=== PATIENT | male | born 1995 | race Two or more races ===

== ENCOUNTER 2024-12-14 09:59 | Emergency (ER) | payer SELFPAY ==
[2024-12-14] MEDS: Ibuprofen 800 MG Tab PO ONE (11:24)
== END 2024-12-14 12:20 | disposition home or self-care (01) ==
LOC: MW.ED 09:59
DX: M72.2 Plantar fascial fibromatosis (principal); Z75.3 Unavailability and inaccessibility of health-care facilities; Z90.49 Acquired absence of other specified parts of digestive tract
CPT/HCPCS: 73630; 99283; A9270; 99282

== ENCOUNTER 2024-12-21 11:49 | Emergency (ER) | payer SELFPAY ==
[2024-12-21] MEDS: Ondansetron 4 MG/2 ML SDV IVPUSH ONE (13:06)
[2024-12-21] MEDS: Morphine 4 MG/ML Syringe IVPUSH ONE (13:06)
[2024-12-21] MEDS: Sodium Chloride 0.9% 2,000 ML IV ONE (13:07)
[2024-12-21 13:12] LABS: BASOPHILS PERCENT AUTO 0.4 % (0.0-1.0); EOSINOPHILS ABSOLUTE AUTO 0.01 K/uL (0.00-0.45); HEMATOCRIT 42.8 % (42.0-52.0); HEMOGLOBIN 14.7 g/dL (14.0-18.0); IMMATURE GRAN ABSOLUTE AUTO 0.21 K/uL (0.00-0.05); IMMATURE GRAN PERCENT AUTO 0.9 % (0.0-0.4); LYMPHOCYTES ABSOLUTE AUTO 2.61 K/uL (1.00-4.80); LYMPHOCYTES PERCENT AUTO 10.6 % (24.0-44.0); MEAN CORPUSCULAR HEMOGLOBIN 28.2 pg (28.0-32.0); MEAN CORPUSCULAR HGB CONC 34.3 g/dL (32.0-36.0); MEAN PLATELET VOLUME 9.7 fL (9.4-12.4); MONOCYTES ABSOLUTE AUTO 1.39 K/uL (0.00-0.80); MONOCYTES PERCENT AUTO 5.6 % (0.0-8.0); NEUTROPHILS PERCENT AUTO 82.5 % (41.0-71.0); PLATELET COUNT,PLT 466 K/uL (150-400); RED BLOOD CELL COUNT 5.22 M/uL (4.52-5.90); WHITE BLOOD CELL COUNT,WBC 24.62 K/uL (3.9-11.3)
[2024-12-21 13:47] LABS: A/G RATIO 0.7 (0.9-1.6); ALBUMIN 3.1 g/dL (3.4-5.0); BILIRUBIN TOTAL 0.7 mg/dL (0.2-1.0); C-REACTIVE PROTEIN 18.71 mg/dL (<0.3); CALCIUM 9.1 mg/dL (8.5-10.1); CARBON DIOXIDE,CO2 21.8 mmol/L (21.0-32.0); CREATININE 0.8 mg/dL (0.8-1.3); EST CRCL DRUG DOSING (CG) 150.89 mL/min; POTASSIUM,K 3.3 mmol/L (3.5-5.1); PROTEIN TOTAL,TP 7.7 g/dL (6.4-8.2)
[2024-12-21 13:51] LABS: HEMOGLOBIN A1C 13.4 %
[2024-12-21] MEDS ORDERED: Ketorolac 30 MG/ML SDV IVPUSH ONE (14:22)
[2024-12-21] MEDS ORDERED: HYDROmorphone 0.5 MG/0.5 ML Syringe IVPUSH PRN (14:26)
[2024-12-21] MEDS: Acetaminophen 500 MG Tab PO ONE (14:29)
[2024-12-21] MEDS: Ketorolac 30 MG/ML SDV IVPUSH ONE (14:30)
[2024-12-21] MEDS ORDERED: droPERidol 2.5 MG/ML SDV IVPUSH PRN (14:38)
[2024-12-21] MEDS: cefTRIAXone 2 GM in Water For Injection, Sterile 20 ML IVPUSH ONE (15:28)
[2024-12-21] MEDS: metroNIDAZOLE/Normal Saline 500 MG in Premix Bag 1 BAG IV ONE (15:29)
[2024-12-21] MEDS: VANCOmycin 2 GM/400 ML 2 GM in Premix Bag 1 BAG IV ONE (15:29)
[2024-12-21] MEDS: Sodium Chloride 0.9% 1,000 ML IV SCH (15:59)
[2024-12-21] MEDS: Sodium Chloride 0.9% 1,000 ML IV ONE (16:01)
== END 2024-12-21 16:30 ==
LOC: MW.ED 11:49
DX: L03.116 Cellulitis of left lower limb (principal); E11.65 Type 2 diabetes mellitus with hyperglycemia; R11.0 Nausea; Z91.148 Patient's other noncompliance with medication regimen for other reason; Z90.49 Acquired absence of other specified parts of digestive tract
CPT/HCPCS: 36415; 80053; 82947; 83036; 83605; 85025; 85652; 86140; 87040; 96361; 96365; 96368; 96375; 99285; A9270; J0696; J1836; J1885; J2270; J2405; J3372; J7030; 99284

== ENCOUNTER 2024-12-30 13:29 | Emergency (ER) | payer BC ==
[2024-12-30] MEDS ORDERED: Sodium Chloride 0.9% 1,000 ML IV ONE (13:43)
[2024-12-30] MEDS ORDERED: Sodium Chloride 0.9% 10 ML Syringe FLUSH PRN (13:43)
[2024-12-30] MEDS ORDERED: Sodium Chloride 0.9% 2.5 ML Syringe FLUSH PRN (13:43)
[2024-12-30] MEDS: Sodium Chloride 0.9% 1,000 ML IV ONE ×2 (14:04→15:23)
[2024-12-30 14:18] LABS: BASOPHILS ABSOLUTE AUTO 0.12 K/uL (0.00-0.20); BASOPHILS PERCENT AUTO 0.9 % (0.0-1.0); EOSINOPHILS ABSOLUTE AUTO 0.16 K/uL (0.00-0.45); EOSINOPHILS PERCENT AUTO 1.2 % (0.0-6.0); HEMATOCRIT 48.4 % (42.0-52.0); HEMOGLOBIN 16.2 g/dL (14.0-18.0); IMMATURE GRAN ABSOLUTE AUTO 0.26 K/uL (0.00-0.05); LYMPHOCYTES ABSOLUTE AUTO 3.36 K/uL (1.00-4.80); LYMPHOCYTES PERCENT AUTO 25.4 % (24.0-44.0); MEAN CORPUSCULAR HEMOGLOBIN 27.1 pg (28.0-32.0); MEAN CORPUSCULAR HGB CONC 33.5 g/dL (32.0-36.0); MEAN CORPUSCULAR VOLUME 81.1 fL (83.0-99.0); MEAN PLATELET VOLUME 9.4 fL (9.4-12.4); MONOCYTES ABSOLUTE AUTO 1.15 K/uL (0.00-0.80); MONOCYTES PERCENT AUTO 8.7 % (0.0-8.0); NEUTROPHILS ABSOLUTE AUTO 8.18 K/uL (1.80-7.70); NEUTROPHILS PERCENT AUTO 61.8 % (41.0-71.0); PLATELET COUNT,PLT 428 K/uL (150-400); RED BLOOD CELL COUNT 5.97 M/uL (4.52-5.90); WHITE BLOOD CELL COUNT,WBC 13.23 K/uL (3.9-11.3)
[2024-12-30 14:43] LABS: A/G RATIO 0.7 (0.9-1.6); ALBUMIN 3.1 g/dL (3.4-5.0); BILIRUBIN TOTAL 0.3 mg/dL (0.2-1.0); CALCIUM 8.8 mg/dL (8.5-10.1); CARBON DIOXIDE,CO2 26.2 mmol/L (21.0-32.0); CREATININE 1.2 mg/dL (0.8-1.3); EST CRCL DRUG DOSING (CG) 100.59 mL/min; MAGNESIUM 2.1 mg/dL (1.8-2.4); PROTEIN TOTAL,TP 7.4 g/dL (6.4-8.2)
[2024-12-30 14:45] LABS: LACTIC ACID 2.3 mmol/L (0.4-2.0)
[2024-12-30] MEDS: Ketorolac 30 MG/ML SDV IVPUSH ONE (15:29)
[2024-12-30 16:31] LABS: LACTIC ACID 1.8 mmol/L (0.4-2.0)
== END 2024-12-30 16:44 | disposition home or self-care (01) ==
LOC: MW.ED 13:29
DX: R07.89 Other chest pain (principal); E11.65 Type 2 diabetes mellitus with hyperglycemia; Z79.4 Long term (current) use of insulin
CPT/HCPCS: 36415; 71045; 71045-26; 80053; 82947; 83605; 83735; 84484; 85025; 87040; 93005; 93010; 96361; 96374; 99284; 99285-25; J1885; J7030

== ENCOUNTER 2025-01-06 10:29 | Emergency (ER) | payer BC ==
[2025-01-06] MEDS ORDERED: Sodium Chloride 0.9% 2.5 ML Syringe FLUSH PRN (10:50)
[2025-01-06] MEDS ORDERED: Sodium Chloride 0.9% 10 ML Syringe FLUSH PRN (10:50)
[2025-01-06] MEDS ORDERED: Sodium Chloride 0.9% 20 ML SDV IV PRN (10:50)
[2025-01-06] MEDS: Sodium Chloride 0.9% 1,000 ML IV ONE ×2 (11:02→13:10)
[2025-01-06 11:12] LABS: EOSINOPHILS ABSOLUTE AUTO 0.11 K/uL (0.00-0.45); EOSINOPHILS PERCENT AUTO 1.1 % (0.0-6.0); HEMATOCRIT 43.9 % (42.0-52.0); HEMOGLOBIN 14.7 g/dL (14.0-18.0); IMMATURE GRAN ABSOLUTE AUTO 0.06 K/uL (0.00-0.05); IMMATURE GRAN PERCENT AUTO 0.6 % (0.0-0.4); LYMPHOCYTES ABSOLUTE AUTO 2.27 K/uL (1.00-4.80); LYMPHOCYTES PERCENT AUTO 23.7 % (24.0-44.0); MEAN CORPUSCULAR HEMOGLOBIN 27.3 pg (28.0-32.0); MEAN CORPUSCULAR HGB CONC 33.5 g/dL (32.0-36.0); MEAN CORPUSCULAR VOLUME 81.4 fL (83.0-99.0); MEAN PLATELET VOLUME 9.7 fL (9.4-12.4); MONOCYTES ABSOLUTE AUTO 0.66 K/uL (0.00-0.80); MONOCYTES PERCENT AUTO 6.9 % (0.0-8.0); NEUTROPHILS ABSOLUTE AUTO 6.37 K/uL (1.80-7.70); NEUTROPHILS PERCENT AUTO 66.7 % (41.0-71.0); PLATELET COUNT,PLT 382 K/uL (150-400); RED BLOOD CELL COUNT 5.39 M/uL (4.52-5.90); WHITE BLOOD CELL COUNT,WBC 9.57 K/uL (3.9-11.3)
[2025-01-06 11:38] LABS: LACTIC ACID 3.8 mmol/L (0.4-2.0)
[2025-01-06 11:44] LABS: A/G RATIO 0.8 (0.9-1.6); ALBUMIN 3.1 g/dL (3.4-5.0); BILIRUBIN TOTAL 0.3 mg/dL (0.2-1.0); C-REACTIVE PROTEIN 0.24 mg/dL (<0.3); CALCIUM 8.8 mg/dL (8.5-10.1); CREATININE 1.2 mg/dL (0.8-1.3); EST CRCL DRUG DOSING (CG) 100.59 mL/min; MAGNESIUM 1.8 mg/dL (1.8-2.4); POTASSIUM,K 4.4 mmol/L (3.5-5.1)
[2025-01-06 12:06] LABS: APPEARANCE,URINE CLEAR; BILIRUBIN,URINE NEGATIVE (NEGATIVE); COLOR,URINE YELLOW; GLUCOSE,URINE >=1000 mg/dL (NEGATIVE); KETONES,URINE NEGATIVE (NEGATIVE); LEUKOCYTE ESTERASE,URINE NEGATIVE (NEGATIVE); NITRITE,URINE NEGATIVE (NEGATIVE); OCCULT BLOOD,URINE TRACE-LYSED (NEGATIVE); PH,URINE 5.5 (5.0-8.0); PROTEIN,URINE 30 mg/dL (NEGATIVE); UROBILINOGEN,URINE 0.2 EU/dL (<2.0)
[2025-01-06 12:15] LABS: BACTERIA,URINE NOT SEEN (NEGATIVE); EPITHELIAL CELLS,URINE RARE (NONE-FEW); RBC,URINE 0-5 (0-2/HPF); WBC,URINE 0-1 (0-5/HPF)
[2025-01-06] MEDS ORDERED: Glucagon,Human Recombinant 1 MG Vial IM PRN (12:32)
[2025-01-06] MEDS ORDERED: 50% Dextrose in Water 50 ML Syringe IVPUSH PRN (12:32)
[2025-01-06] MEDS: Iopamidol 755 Mg/ML 100 ML Bottle IVPUSH STA (12:38)
[2025-01-06] MEDS: Insulin Regular, Human 100 Units/ML 10 ML Vial IVPUSH ONE (12:42)
[2025-01-06] MEDS: WATER FOR INJECTION IVPUSH ONE (14:20)
[2025-01-06] MEDS: STERILE IVPUSH ONE (14:20)
[2025-01-06] MEDS: AZTREONAM IVPUSH ONE (14:20)
[2025-01-06] MEDS ORDERED: Naloxone 0.4 MG/ML SDV IVPUSH PRN (14:31)
[2025-01-06] MEDS: VANCOmycin 2 GM/400 ML 2 GM in Premix Bag 1 BAG IV ONE (14:39)
[2025-01-06] MEDS: HYDROmorphone 0.5 MG/0.5 ML Syringe IVPUSH ONE (14:40)
[2025-01-06] MEDS: Metoclopramide 10 MG/2 ML SDV IVPUSH ONE (14:40)
[2025-01-06] MEDS: Sodium Chloride 0.9% 1,000 ML IV SCH (14:41)
[2025-01-06] MEDS: Piperacillin/Tazobactam 4.5 GM in Sodium Chloride 0.9% 100 ML IV ONE (14:41)
== END 2025-01-06 15:31 ==
LOC: MW.ED 10:29
DX: L02.611 Cutaneous abscess of right foot (principal); E11.9 Type 2 diabetes mellitus without complications; Z79.4 Long term (current) use of insulin; Z79.899 Other long term (current) drug therapy; Z90.49 Acquired absence of other specified parts of digestive tract
CPT/HCPCS: 36415; 73701; 80053; 81001; 82947; 83605; 83735; 85025; 86140; 87040; 93005; 96361; 96365; 96375; 99285; J0457; J2765; J3372; J7030; Q9967; 99284; J1171; J1815-GY

== ENCOUNTER 2025-01-30 09:55 | Emergency (ER) | payer BC | END 2025-01-30 11:10 | disposition home or self-care (01) | LOC: MW.ED 09:55 | DX: Z48.02 Encounter for removal of sutures (principal); E11.9 Type 2 diabetes mellitus without complications; Z75.3 Unavailability and inaccessibility of health-care facilities; Z79.4 Long term (current) use of insulin; Z79.899 Other long term (current) drug therapy | CPT/HCPCS: 99281; 99282 ==